=== PATIENT | female | born 1960 | race Asian ===

== ENCOUNTER → 2017-06-15 | Outpatient (CLI) | payer OTHER ==
[~2017-06-15] MED LIST: ASPI-496 PO; ATOR20TA9 PO; ESOM20CA PO; LOSA100T6 PO; MELO7.5T31 PO; METF500T4 PO; PANT20TA3 PO; SITA100T PO
[2017-06-15 14:00] LABS: ASPARTATE AMINO TRANSFERASE 11 U/L (15-37); BLOOD UREA NITROGEN 13 mg/dL (7-18)
== END | disposition home or self-care (01) ==
LOC: STAR 12:59
PROVIDERS: ATTEND Orthopaedic Surgery
DX: Z01.818 Encounter for other preprocedural examination (principal); M65.332 Trigger finger, left middle finger
CPT/HCPCS: 36415; 80053; 93005

== ENCOUNTER → 2017-09-12 | Outpatient (CLI) | payer OTHER | LOC: STAR 12:09 | PROVIDERS: ATTEND Orthopaedic Surgery | DX: Z02.9 Encounter for administrative examinations, unspecified (principal) ==

== ENCOUNTER 2017-09-21 05:12 | Day surgery (SDC) | payer OTHER ==
[2017-09-12 12:46] VITALS: BP 158/81
[~2017-09-21] VITALS: Ht 154.9 cm; Wt 76.4 kg
[2017-09-21] MEDS ORDERED: LACTATED RINGERS 1,000 ML IV SCH (05:43)
[2017-09-21 05:45] VITALS: BP 158/81
[2017-09-21] MEDS ORDERED: LIDOCAINE 1%, 2ML SQ PRN (06:00)
[2017-09-21] MEDS ORDERED: BUPIVACAINE/PF 0.5% ONE (06:03)
[2017-09-21] MEDS ORDERED: EPINEPHRINE 1 MG/ML, 1ML ONE (06:03)
[2017-09-21] MEDS ORDERED: FENTANYL PF 100 MCG/2ML ONE (06:29)
[2017-09-21] MEDS ORDERED: LIDOCAINE/PF 1%-EPI 1:200K, 30 ML ONE (06:31)
[2017-09-21] MEDS ORDERED: MIDAZOLAM 1 MG/ML, 2ML ONE (06:34)
[2017-09-21] MEDS ORDERED: CEFAZOLIN 1,000 MG ONE (06:51)
[2017-09-21] MEDS ORDERED: KETOROLAC 30 MG/1 ML ONE (06:51)
== END 2017-09-21 08:10 | disposition home or self-care (01) ==
LOC: OUT 05:12
PROVIDERS: ATTEND Orthopaedic Surgery
DX: M65.332 Trigger finger, left middle finger (principal); I10 Essential (primary) hypertension; E11.9 Type 2 diabetes mellitus without complications; E78.5 Hyperlipidemia, unspecified; Z79.84 Long term (current) use of oral hypoglycemic drugs; Z79.82 Long term (current) use of aspirin; K21.9 Gastro-esophageal reflux disease without esophagitis; M19.90 Unspecified osteoarthritis, unspecified site
CPT/HCPCS: 26055; 82962; J0690; J1885; J3490; J7120; J0171; J2250; J3010

== ENCOUNTER → 2018-07-24 | Outpatient (CLI) | payer OTHER ==
[~2018-07-24] MED LIST changes: -LOSA100T6 PO; +LOSA100T7 PO; +METF500T17 PO; -METF500T4 PO
== END | disposition home or self-care (01) ==
LOC: CFH 14:54
PROVIDERS: ATTEND Genetic Counselor, MS
DX: Z12.31 Encounter for screening mammogram for malignant neoplasm of breast (principal)
CPT/HCPCS: 77067

== ENCOUNTER → 2019-11-09 | Outpatient (CLI) | payer BC, OTHER ==
[~2019-11-09] MED LIST changes: +ATOR20TA37 PO; -ATOR20TA9 PO; +LOSA100T14 PO; -LOSA100T7 PO
== END | disposition home or self-care (01) ==
LOC: CFH 15:10
PROVIDERS: ATTEND Genetic Counselor, MS
DX: Z12.31 Encounter for screening mammogram for malignant neoplasm of breast (principal)
CPT/HCPCS: 77063; 77067

== ENCOUNTER → 2020-07-02 | Outpatient (CLI) | payer BC ==
[~2020-07-02] MED LIST changes: -PANT20TA3 PO; +PANT20TA4 PO
== END | disposition home or self-care (01) ==
LOC: EDSTATUS 06-20 08:30 → CFH 15:15 → EDSTATUS 15:30
PROVIDERS: ATTEND Genetic Counselor, MS
DX: S83.232A Complex tear of medial meniscus, current injury, left knee, initial encounter (principal); M94.262 Chondromalacia, left knee; M71.22 Synovial cyst of popliteal space [Baker], left knee; M25.462 Effusion, left knee; X58.XXXA Exposure to other specified factors, initial encounter; Y93.89 Activity, other specified; Y92.89 Other specified places as the place of occurrence of the external cause; Y99.8 Other external cause status

== ENCOUNTER → 2021-04-17 | Outpatient (CLI) | payer BC | END | disposition home or self-care (01) | LOC: CFH 10:41 | PROVIDERS: ATTEND Genetic Counselor, MS | DX: Z12.31 Encounter for screening mammogram for malignant neoplasm of breast (principal) | CPT/HCPCS: 77063; 77067 ==